=== PATIENT | female | born 1955 | race Caucasian/White ===

== ENCOUNTER 2017-09-02 05:15 | Emergency (ER) | payer BC, OTHER ==
[~2017-09-02] VITALS: Ht 165.1 cm; Wt 91.2 kg
[~2017-09-02 05:15] MED LIST: AGM875T PO
[2017-09-02] MEDS ORDERED: ONDANSETRON 4 MG (ZOFRAN) ORAL DISSOLVE TAB ONE (06:18)
[2017-09-02] MEDS ORDERED: ONDANSETRON 4 MG (ZOFRAN) ORAL DISSOLVE TAB PO ONE (06:30)
--- NOTE | 2017-09-02 06:46 | ED General ---
General Chief Complaint: Dizziness/Syncope Stated Complaint: DIZZY NAUSEA Nursing Triage Note: PT TO ED 6 W/ C/O DIZZINESS ONSET 0230 THIS AM. REPORTS WHEN SHE GOT UP TO GET SOMETHING TO DRINK, BEGAN VOMITING. DOES REPORTS SOME COUGH/CONGESTION RECENTLY. NO OTHER C/O VOICED Nursing Sepsis Screen: No Definite Risk Source of Information: Patient Exam Limitations: No Limitations History of Present Illness Date Seen by Provider: Sep 02, 2017 Time Seen by Provider: 06:08 Initial Comments This 61-year-old woman presents to the emergency room with complaints of dizziness and nausea that started at around 02:30 this morning. She was dizzy with rolling over in bed and with standing up. She was hoping lying down would improve her dizziness but a, worse when she laid down. She denies any neurologic deficits. She is ambulatory. She has no other associated symptoms. She reports having a URI last week. Allergies and Home Medications Allergies Coded Allergies: No Known Drug Allergies (Unverified , 01/19/11) Home Medications Amoxicillin/Clavulanate K 1 Tab Tablet, 1 TAB PO BID, #10 Ref 0 Prescribed by: ALICIA HAND on 01/19/112111 Meclizine HCl 25 Mg Tablet, 25 MG PO Q8H PRN for DIZZINESS, #10 Prescribed by: SHELLEY DUMONT on 09/02/17 0737 Promethazine HCl 25 Mg Tablet, 25 MG PO Q8H PRN for NAUSEA/VOMITING, #10 Prescribed by: SHELLEY DUMONT on 09/02/17 0737 Constitutional: no symptoms reported EENTM: no symptoms reported Respiratory: no symptoms reported Cardiovascular: no symptoms reported Gastrointestinal: see HPI Genitourinary: no symptoms reported : No Musculoskeletal: no symptoms reported Skin: no symptoms reported Psychiatric/Neurological: See HPI Hematologic/Lymphatic: No Symptoms Reported Past Pjezhmj-Pdivat-Ibgnwc Hx Patient Social History Alcohol Use: Denies Use Recreational Drug Use: No Smoking Status: Never a Smoker Recent Foreign Travel: No Contact w/Someone Who Travel: No Recent Infectious Disease Expo: No Recent Hopitalizations: No Surgeries History of Surgeries: Yes Surgeries: Gallbladder Respiratory History of Respiratory Disorde: No Cardiovascular History of Cardiac Disorders: No Neurological History of Neurological Disord: No Reproductive System : No Genitourinary History of Genitourinary Disor: No Gastrointestinal History of Gastrointestinal Di: No Musculoskeletal History of Musculoskeletal Dis: No Endocrine History of Endocrine Disorders: No HEENT History of HEENT Disorders: No Cancer History of Cancer: No Psychosocial History of Psychiatric Problem: No Integumentary History of Skin or Integumenta: No Blood Transfusions History of Blood Disorders: No Physical Exam Vital Signs Vital Sign - Last 12Hours 09/02/17 05:18 Temp 96.3 Pulse 73 Resp 18 B/P (MAP) 147/77 (100) Pulse Ox 97 O2 Delivery Room Air Capillary Refill : Less Than 3 Seconds General Appearance: No Apparent Distress, WD/WN HEENT: PERRL/EOMI, TMs Normal, Normal ENT Inspection, Pharynx Normal Neck: Normal Inspection Respiratory: Lungs Clear, Normal Breath Sounds, No Accessory Muscle Use, No Respiratory Distress Cardiovascular: Regular Rate, Rhythm, No Edema, No Murmur Gastrointestinal: Normal Bowel Sounds, Non Tender, Soft Extremity: Normal Inspection, No Pedal Edema Neurologic/Psychiatric: Alert, Oriented x3, No Motor/Sensory Deficits, Normal Mood/Affect, online retailer II-XII Norm as Tested, Other (Normal gait, normal finger-to- nose and [id number]. Timothy-Hallpike positive on the left with both dizziness and nystagmus) Skin: Normal Color, Warm/Dry Progress/Results/Core Measures Suspected Sepsis Recent Fever Within 48 Hours: No Infection Criteria Present: None New/Unexplained Altered Menta: No Sepsis Screen: No Definite Risk Sepsis Diagnosis: SIRS Temperature:96.3 Pulse: 73 Respiratory Rate: 18 Blood Pressure 147 /77 Mean: 100 Results/Orders My Orders Medications Given in ED Vital Signs/I&O Capillary Refill : Less Than 3 Seconds Blood Pressure Mean: 100 Progress Note : Time: 07:10 Progress Note Patient's symptoms were consistent with BPPV. She had a positive Timothy Hallpike to the left with nystagmus and significant dizziness. The Jules maneuver did not appear successful in resolving her symptoms. She was given meclizine and Phenergan for further treatment of her symptoms. A take-home packet with Jules maneuver instructions will be given at discharge along with prescriptions. Departure Impression Impression: Primary Impression: Vertigo Disposition: 01 HOME, SELF-CARE Condition: Improved Departure-Patient Inst. Decision time for Depature: 07:10 Referrals: RENO JOLLY MD (PCP) Primary Care Physician Patient Instructions: Vertigo (a Type of Dizziness) (DC) Add. Discharge Instructions: Take your medications as prescribed for her dizziness and nausea. Minimize head movements as much as possible, especially rapid movements to the left. Repeat the Jules maneuver at home as needed. Follow-up with your doctor on Sunday if still having symptoms. Return to the ER symptoms worsen. All discharge instructions reviewed with patient and/or family. Voiced understanding. Scripts Meclizine HCl (Meclizine HCl) 25 Mg Tablet 25 MG PO Q8H Y for DIZZINESS, #10 TAB Prov: SHELLEY MON MD 09/02/17 Promethazine HCl (Promethazine Tablet) 25 Mg Tablet 25 MG PO Q8H Y for NAUSEA/VOMITING, #10 TAB Prov: SHELLEY MON MD 09/02/17 Copy Copies To 1: RENO JOLLY MD, JOSHUA T MD Sep 02, 2017 06:45
[2017-09-02] MEDS ORDERED: PROM25TA14 PO (07:37)
[2017-09-02] MEDS ORDERED: MECL-106 PO (07:37)
[2017-09-02] MEDS ORDERED: MECLIZINE 25 MG (ANTIVERT) TAB PO ONE (07:45)
[2017-09-02] MEDS ORDERED: PROMETHAZINE 25 MG (PHENERGAN) TAB PO ONE (07:45)
[2017-09-02 07:48] VITALS: BP 141/76
== END 2017-09-02 07:48 | disposition home or self-care (01) ==
LOC: EDUNIT# 05:15 → ER 05:17
DX: R42 Dizziness and giddiness (principal)
CPT/HCPCS: 99283

== ENCOUNTER 2019-02-26 13:00 | Outpatient (RCR) | payer OTHER ==
[~2019-02-26 13:00] MED LIST changes: +MECL-106 PO; +PROM25TA14 PO
== END 2019-03-19 09:10 | disposition home or self-care (01) ==
PROVIDERS: ATTEND Nurse Practitioner Family
DX: M54.42 Lumbago with sciatica, left side (principal)

== ENCOUNTER → 2023-06-05 | Outpatient (CLI) | payer MEDICARE, OTHER ==
[~2023-06-05] MED LIST changes: -MECL-106 PO; +MECL-291 PO
--- NOTE | 2023-06-05 17:17 | Diagnostic Imaging Report ---
Indication: Routine screening. No prior mammograms are available for comparison. 2-D and 3-D bilateral screening mammography was performed with CAD. Scattered fibroglandular densities are identified bilaterally. There is an intraparenchymal lymph node in the upper outer left breast. No spiculated mass or malignant-appearing microcalcifications are identified. Axillae are unremarkable. IMPRESSION: BI-RADS Category 2 No mammographic features suspicious for malignancy are identified. ACR BI-RADS Category 2: Benign findings. Result letter will be mailed to the patient. Note: At least 10% of breast cancer is not imaged by mammography. Dictated by: Dictated on workstation # [id number]
== END ==
LOC: RAD 10:14
PROVIDERS: ATTEND Nurse Practitioner Family
DX: Z12.31 Encounter for screening mammogram for malignant neoplasm of breast (principal); G47.00 Insomnia, unspecified; R23.2 Flushing
CPT/HCPCS: 77063; 77067